=== PATIENT | female | born 1985 | race Two or more races ===

== ENCOUNTER 2023-12-21 08:51 | Emergency (ER) | payer OTHER, SELFPAY ==
[2023-12-21 09:08] VITALS: BP 150/103; PULSE 101; RESP 18; TEMP 36.1; O2SAT 99; BMI 28.5
[2023-12-21 09:32] LABS: Hematocrit 36.6 % (37.0-47.0); Hemoglobin 12.6 g/dl (12.0-16.0); Mean Corpuscular HGB Conc 34.4 g/dl (31.0-35.0); Mean Corpuscular Hemoglobin 28.9 pg (27.0-33.0); Mean Corpuscular Volume 83.9 fL (80.0-98.0); Mean Platelet Volume 10.2 fL (9.4-12.3); Platelet Count 385 X10*3/uL (160-400); Red Blood Count 4.36 X10*6/uL (4.20-5.50); Red Cell Distribution Width 13.9 % (11.0-16.0); White Blood Count 8.7 X10*3/uL (4.8-10.8)
[2023-12-21 09:52] LABS: Alanine Aminotransferase 21 U/L (0-31); Albumin Level 4.4 g/dL (3.5-5.0); Alkaline Phosphatase 102 U/L (39-117); Anion Gap 11 (12-20); Aspartate Amino Transferase 20 U/L (5-31); Bilirubin Total 0.1 mg/dL (0.0-1.0); Blood Urea Nitrogen 9 mg/dL (9-16); Calcium 9.2 mg/dL (8.4-10.2); Carbon Dioxide 24 mmol/L (22-29); Chloride 109 mmol/L (96-108); Creatinine Clr Calc Pharmacy 96.1; Estimated Glomerular Filt Rate > 60; Glucose Random 114 mg/dL (60-115); Potassium 4.3 mmol/L (3.3-5.1); Sodium 140 mmol/L (135-145); Total Protein 7.6 g/dL (6.5-8.0)
== END 2023-12-21 12:54 | disposition left against medical advice (07) ==
PROVIDERS: Emergency Provider Emergency Medicine
DX: R51.9 Headache, unspecified (principal); Z53.21 Procedure and treatment not carried out due to patient leaving prior to being seen by health care provider
CPT/HCPCS: 36415; 80053; 85027; 99281; 99283

== ENCOUNTER 2025-06-11 19:35 | Emergency (ER) | payer OTHER, SELFPAY ==
--- OUTSIDE RECORDS SUMMARY | 2025-06-09 09:26 | XMS_ITS | Continuity of Care Document ---
Author Organization [facility] Address [address] [place] [address]- Care Team Providers Care Electromechanical Equipment Assembler Name Role Phone Miguelangel CHRISTIANSON, [place] Primary Care Physician [phone] Encounter [facility] Date(s): 04/13/25 - 06/09/[address] Encounter Diagnosis Cervicalgia(Final) - Discharge Disposition: A-D/C Home Attending Physician: Ny Means MD Admitting Physician: Ny Means MD Referring Physician: Wero [facility]ST[facility]SON [facility] En[facility] Type: Disch Recurring OP Allergies, Adverse Reactions, Alerts No Known Allergies Immunizations Given and Recorded Vaccine Date Status Refusal Reason SARS-CoV-2 (COVID-19) mRNA-1273 vaccine 02/06/22 R ecorded SARS-CoV-2 (COVID-19) mRNA-1273 vaccine 08/30/21 R ecorded SARS-CoV-2 (COVID-19) mRNA-1273 vaccine 08/02/21 R ecorded influenza virus vaccine, inactivated 05/30/18 Sony rded tetanus/diphtheria/pertussis, acel(Tdap) 04/22/17 Given Human Papillomavirus Vaccine 09/19/09 Given tetanus-diphtheria toxoids (Td) 02/22/06 Given Medications Albuterol (Eqv-ProAir HFA) 90 mcg/inh inhalation aerosol 1 inhalation = 90 mcg, Inhalation, Every 4 hours, PRN as needed for shortness of breath or wheezing, # 6.7 Gm, 0 Refills, Maintenance, 11/25/24 3:45:00 PM EDT, Aerosol, [facility] #[id number], Partial fill upon patient request if the prescription is for a schedule II opioid drug., 1 inhalation Inhalation Every 4 hours,PRN:as needed for shortness of breath or wheezing, 163, cm, 11/25/24 15:08:00 EDT, Height, 77.5, kg, 11/11/24 4:52:00 EDT, Dry Weight Start Date: 11/25/24 Status: Ordered Medication Dispense Status: Completed Quantity: 6.7 Unit: g Total Allowed Fills: 1 Fills Dispensed: 0 Colace sodium 100 mg oral capsule 100 mg, 1, capsule, By Mouth, 2 times a day, PRN, with plenty of water, # 60 capsule, Refills 1, Tot. Refills 1, Maintenance, constipation, 12/22/24 9:37:00 AM EDT, [id number], 163, cm, 12/22/24 8:36:00 EDT, Height, 77.5, kg, 11/11/24 4:52:00 EDT, Dry Weight Start Date: 12/22/24 Stop Date: 02/20/25 Status: Ordered Medication Dispense Status: Completed Quantity: 60.0 Unit: capsule Total Allowed Fills: 2 Fills Dispensed: 0 gabapentin 100 mg oral capsule 3, capsule, By Mouth, 3 times a day, AVOID ALCOHOL., # 270 capsule, Refills 0, Maintenance, 01/19/25 5:52:00 PM EDT, Route to Pharmacy Electronically, [id number], 163, cm, 12/22/24 8:36:00 EDT, Height, 77.5, kg, 11/11/24 4:52:00 EDT, Dry Weight Start Date: 01/19/25 Status: Ordered Medication Dispense Status: Completed Quantity: 270.0 Unit: capsule Total Allowed Fills: 1 Fills Dispensed: 0 hydrochlorothiazide 25 mg oral tablet 25 mg, 1, tablet, By Mouth, Daily, # 90 tablet, Refills 3, Tot. Refills 3, Maintenance, 08/10/24 4:05:00 PM EST, Route to Pharmacy Electronically, [facility], Partial fill upon patientrequest if the prescription is for a schedule II opioid drug., 163, cm, 06/26/24 15:55:00 EST, Height, 78.8, kg, 09/05/23 0:09:00 EST, Dry Weight Start Date: 08/10/24 Status: Ordered Medication Dispense Status: Completed Quantity: 90.0 Unit: tablet Total Allowed Fills: 4 Fills Dispensed: 0 ibuprofen 600 mg oral tablet via J Andraedes, Refills 0, Maintenance, 12/22/24 9:16:00 AM EDT, Partial fill upon patient request if the prescription is for a schedule II opioid drug. Start Date: 12/22/24 Status: Ordered Medication Dispense Status: Completed Total Allowed Fills: 1 Fills Dispensed: 0 lidocaine 5% topical film 1 patch, Topically, Daily, PRN NEEDED FOR PAIN, REMOVE PATCHES AFTER 12 HOURS, # 30 patch, 0 Refills, Maintenance, 01/19/25 5:52:00 PM EDT, [id number], 30, APPLY 1 PATCH TOPICALLY DAILY NEEDED FOR PAIN . REMOVE PATCHES AFTER 12 HOURS, 163, cm, 12/22/24 8:36:00 EDT, Height, 77.5, kg, 11/11/24 4:52:00 EDT, Dry Weight Start Date: 01/19/25 Status: Ordered Medication Dispense Status: Completed Quantity: 30.0 Unit: patch Total Allowed Fills: 1 Fills Dispensed: 0 losartan 25 mg oral tablet 1 tablet, By Mouth, Daily, # 90 tablet, 0 Refills, Maintenance, 03/19/25 12:34:00 PM EDT, [id number], 163, cm, 02/08/25 13:54:00 EDT, Height, 77.5, kg, 11/11/24 4:52:00 EDT, Dry Weight Start Date: 03/19/25 Status: Ordered Medication Dispense Status: Completed Quantity: 90.0 Unit: tablet Total Allowed Fills: 1 Fills Dispensed: 0 Ventolin HFA 108 mcg/inh inhalation aerosol with adapter via J Andraedes, 0 Refills, Maintenance, 12/22/24 9:16:00 AM EDT, Partial fill upon patient request if the prescription is for a schedule II opioid drug. Start Date: 12/22/24 Status: Ordered Medication Dispense Status: Completed Total Allowed Fills: 1 Fills Dispensed: 0 Problem List Condition Confirmation Course Effective Dates Status Health St atus Informant Hypertension Confirmed Active Hypokalemia, most readings 2003 - 2024 Confirmed 2003 Active Social History Social History Type Response Smoking Status Never (less than 100 in lifetime);Former smoker, quit more than 30 days ago; Other: quit in 2023; entered on: 04/07/25 Sex Sex Representation Female (finding) Patient Care team information Care Team Personnel Name: Ny Means MD Position: [facility] Physician - Primary Care Member Role: PCP Address: [address] [place] [address] Telecom: Name: Grecia Keller RN Position: [facility] RN Member Role: Primary Care Nurse Name: Lori Rincon RN Position: [facility] RN Member Role: Primary Care Nurse Care Team Related Persons Name: BEAU PASTOR Name: JEREMIAH PABLO Name: LEENA STARK Name: MICHELE STARK Insurance Providers Guarantor name: FAIZAN PABLO Health Plan Information #: 1 Payer: [employer] [place] Payer Identifier: Member Number: [id number] Group Number: [id number] Subscriber Identifier: [id number] Relationship to Subscriber: self Coverage Type: Medicaid (Managed Care) Coverage Verification Date: NA Telecom: NA Address: Health Plan Information #: 2 Payer: [employer] Payer Identifier: Member Number: [id number] Group Number: Subscriber Identifier: [id number] Relationship to Subscriber: self Coverage Type: MEDICAID Coverage Verification Date: NA Telecom: NA Address:
--- NOTE | ~2025-06-11 | XR_ITS ---
CLINICAL HISTORY: pain s p fall 3 view right ankle Comparison: None provided Findings: There is a fracture of the lateral malleolus. Minimal displacement. No dislocation. Symmetric ankle mortise. Anterior and lateral soft tissue edema. No significant loss of joint space, osteophytes, or erosions. No ankle effusion. No radiopaque foreign body. IMPRESSION: Acute fracture of the lateral malleolus. This document has been electronically signed by: Jinny Scott MD on 06/11/2025 20:41:23
--- NOTE | ~2025-06-11 | XR_ITS ---
CLINICAL HISTORY: pain s p fall 3 view right foot Comparison: None provided Findings: There is an acute fracture of the lateral malleolus. Minimal displacement at the fracture site. No fracture at the level of the foot. No significant loss of joint space, osteophytes, or erosions. No ankle effusion. No radiopaque foreign body. IMPRESSION: Acute fracture of the lateral malleolus. This document has been electronically signed by: Jinny Scott MD on 06/11/2025 20:41:43
[2025-06-11 19:38] VITALS: BP 152/69; PULSE 89; RESP 18; TEMP 37; O2SAT 96; BMI 26.3
--- OUTSIDE RECORDS SUMMARY | 2025-06-11 20:04 | XMS_ITS | Clinical Summary ---
Author Organization [facility] Address [address] [place] [phone] Phone Care Team Providers Care Surface Supervisor Name Role Phone Pcp, Unknown Primary Care Provider Unavailabl e Social History Tobacco Use Types Packs/Day Years Used Date Smoking Tobacco: Never Assessed Comments Unknown Sex and Gender Information Value Date Recorded Sex Assigned at Not on file Legal Sex Female 12:22 PM EST Gender Identity Not on file Sexual Orientation Not on file Plan of Treatment Health Maintenance Due Date Last Done Comments DEPRESSION SCREENING 1996 HEPATITIS C SCREENING 2002 HIV ONE-TIME SCREENING (18-6 5 YEARS) 2002 PAP SMEAR 2005 MAMMOGRAM 2024 INFLUENZA VACCINE (#1) 2025 05/30/2018 COVID-19 VACCINE (2024-2 6 season) 2025 02/06/2022, 08/30/2021, 08/02/2021 Adult Td,Tdap Booster 04/22/2027 04/22/2017 , 02/22/2006 HEPATITIS A VACCINES Aged Out No long er eligible based on patient's age to complete this topic HIB VACCINES Aged Out No longer eligi ble based on patient's age to complete this topic MENINGOCOCCAL VACCINES (ACWY) Aged Out No longer eligible based on patient's age to complete this topic MENINGOCOCCAL VACCINES (B) Aged Out N o longer eligible based on patient's age to complete this topic PNEUMOCOCCAL VACCINES (0-49 years) Aged Out No longer eligible b ased on patient's age to complete this topic Medical Devices Not on file Insurance [facility] [place] [address] [facility] , [address] [place] [id number] [place] [address] , [address] [place] [id number] [facility] Care Teams Surface Supervisor Relationship Specialty Start Date End Date Pcp, Unknown PCP - General 06/15/22 Additional Source Comments The information contained in this document represents components of the legal health record. It is not the complete legal health record.[facility]
--- NOTE | 2025-06-11 20:08 | ED_ITS ---
HPI - Extremity Injury (Lower) General Chief Complaint: Extremity Injury, Lower Stated Complaint: Injury Time Seen by Provider: 06/11/25 20:05 Source: patient Mode of arrival: ambulatory Limitations: no limitations History of Present Illness ED Provider: Parminder WATSON HPI Narrative: The patient is a 40-year-old female who was running on her driveway earlier this morning when she inverted her right ankle. She did not fall or strike her head. She reports immediate pain and swelling localized to the lateral and dorsal aspects of the right ankle. She is able to bear weight with a limp but states it is painful to do so. She was wearing sandals at the time of injury. She has not taken any medications for pain prior to arrival. She denies any previous injury or surgery to the affected ankle. No other injuries reported. Related Data Previous Rx's ?Medication ?Instructions ?Recorded acetaminophen 500 mg capsule 1,000 mg (2 x 500 mg) PO .q8 PRN 06/11/25 fever or pain #30 caps ibuprofen 600 mg tablet 600 mg PO Q8H PRN fever or p ain 06/11/25 #30 tabs Allergies Allergy/AdvReac Type Severity Reaction Status Date / Time No Known Allergies Allergy Verified 06/11/25 19:40 Review of Systems Review of Systems: Yes all other systems are reviewed and are negative Physical Exam Vital Signs: Vital Signs: Last Vital Signs Temp 98.0 F 06/11/25 21:12 Pulse 74 06/11/25 21:12 Resp 16 06/11/25 21:12 BP 127/79 06/11/25 21:12 Pulse Ox 98 06/11/25 21:12 O2 Del Method Room Air 06/11/25 21:12 BMI result Body Mass Index 26.3 CONSTITUTIONAL: The patient appears non-toxic, well nourished and in no acute distress. Vital signs as documented. HEAD: Atraumatic, normocephalic. EYES: EOMs grossly intact, pupils equal, conjunctiva clear, no exudate. ENT: Nares patent, no discharge. Airway patent, no audible stridor, visible mucosa is pink and moist without noted lesions. NECK: trachea is midline, no obvious masses or gross abnormalities. CHEST: Symmetric movement, normal appearance. LUNGS: Non-labored work of breathing. CARDIAC: No evidence of hypoperfusion. ABDOMEN: Nondistended, no obvious injury. : Deferred. EXTREMITIES: There is moderate swelling and tenderness to palpation of the right lateral malleolus and anterior ankle, no tenderness of the proximal fibula, no crepitus, mild abrasions noted to the lateral aspect of the 5th distal metatarsal, no other open injury, 2+ DP/PT pulses, distal CSM intact, painful but full range of motion noted. Moves all other extremities spontaneously without reported pain. No other obvious injury or deformity noted. NEURO: Alert and oriented x3, CN II-XII appear grossly intact. Cerebellar Functioning grossly intact. Speech clear and appropriate. SKIN: Warm, dry, color appropriate. No rashes or lesions noted. Medications Administered Discontinued Medications Generic Name Dose Route Start Last Admin Trade Name Freq PRN Reason Stop Dose Admin Acetaminophen 975 mg 06/11/25 20:17 06/11/25 20:21 Acetaminophen 325 Mg Tablet PO 06/11/25 20:18 975 mg ONCE ONE Administration Ibuprofen 600 mg 06/11/25 20:17 06/11/25 20:21 Ibuprofen 600 Mg Tablet PO 06/11/25 20:18 600 mg ONCE ONE Administration Medical Decision Making Medical Decision Making MDM Narrative: 8:09 PM 06/11/2025 (Martine WATSON): The patient is a 40-year-old female who was running on her driveway earlier this morning when she inverted her right ankle. She did not fall or strike her head. She reports immediate pain and swelling localized to the lateral and dorsal aspects of the right ankle. She is able to bear weight with a limp but states it is painful to do so. She was wearing sandals at the time of injury. She has not taken any medications for pain prior to arrival. She denies any previous injury or surgery to the affected ankle. No other injuries reported. 8:23 PM 06/11/2025 (Martine WATSON): The patient's ankle x-ray has been obtained and by this provider's interpretation shows a comminuted fracture of the distal fibula, no evidence of bimalleolar or trimalleolar fracture, ankle mortise shows no significant widening. No fractures of the foot identified. Pending similar interpretation by radiology the patient will be placed in a tall walking boot and provided crutches with non-weightbearing instructions and orthopedic follow up for definitive management. Admission/Observation Consideration of admission/observation: Escalation of care including admission/observation considered Independent Interpretation I performed an independent interpretation of an: Plain X-Ray Interpretation: Comminuted fracture of the distal fibula, no evidence of bimalleolar or trimalleolar fracture, ankle mortise appears intact. No foot fractures identified. Radiology Impression Discussion of test interpretation with radiology: I have reviewed the radiologist's reading. External Record Review External record reviewed: Outpatient record Prescription Management I considered prescription management with: Pain Medication Discharge Plan Discharge Clinical Impression: Closed right fibular fracture Qualifiers: Encounter type: initial encounter Fibula location: distal Patient Disposition: Home, Self-Care Instructions: Ankle Fracture (ED), P.R.I.C.E. Treatment (ED) Additional Instructions: Marjan por elegir el Departamento de Urgencias del [facility] M?dico [place] para san atenci?n m?dica hoy. En kadie momento, no hay indicaci?n de ingreso hospitalario ni de observaci?n continua en urgencias, y es seguro darle de alanis. Lamentablemente, san radiograf?a de hoy muestra janine fractura del peron? distal del tobillo derecho. Afortunadamente, no hay desalineaci?n del tobillo y pudimos colocarle janine bota ortop?dica y proporcionarle muletas. Por favor, use las muletas para no cargar peso hasta san gladys de seguimiento en la cl?ben ortop?dica. Por favor, llame a la cl?ben ortop?dica al n?blanche proporcionado para programar janine gladys de seguimiento y tratamiento adicional de esta fractura. Debe romel dosis alternas (escalonadas) de ibuprofeno 600 mg y Tylenol 1000 mg cada 4 horas seg?n sea necesario para cualquier dolor adicional. Por favor, deje reposar la dominga lesionada y aplique hielo ronal 20 minutos cada hora. Por favor, consulte tambi?n con san m?dico de cabecera para janine reevaluaci?n, un tratamiento adicional de joy s?ntomas y atenci?n preventiva continua. Si no tiene un m?dico de cabecera, llame a [facility] al [phone] para asignarle albert nuevo. Mientras espera la asignaci?n de san nuevo m?dico de cabecera, puede llamar a nuestra Cl?ben de Atenci?n Sin Gladys Previa al [phone] para necesidades que no yair de emergencia. Por favor, regrese al servicio de urgencias si presenta un cambio grave o repentino en joy s?ntomas, fiebre superior a 38 ?C que no mejora con Tylenol o ibuprofeno, v?mitos recurrentes o cualquier otro s?ntoma o inquietud nuevo o que empeore. Thank you for choosing [facility] Emergency Department for your care today. At this time there is no indication for admission to the hospital or continued ED observation, and it is safe to discharge you home. Unfortunately your x-ray today demonstrates that you suffered a fracture of the distal fibula of your right ankle. Thankfully there is no misalignment of the ankle and we were able to put you in a walking boot and provided crutches. Please use the crutches to remain nonweightbearing until follow up with the orthopedic clinic. Please call the orthopedic clinic by calling the number provided to schedule an appointment for follow up and further management of this fracture. You should take alternating (staggered) doses of ibuprofen 600mg and Tylenol 1000mg every 4 hours as needed for any additional pain. Please rest the injured area, and apply ice for 20 minutes every hour. Please also follow up with your primary care physician for re-evaluation, additional management of your symptoms, and continued preventative care. If you do not have a primary care physician, please call the [facility] at [phone] to establish a new primary care physician. While waiting to establish your new primary care physician, you can call our Walk-in Care Clinic at [phone] for non-emergency needs. Please return to the emergency department if you develop a severe or sudden change in your symptoms, a fever over 100.4 that does not improve with Tylenol or Ibuprofen, recurrent vomiting, or any other new or worsening symptoms or concerns. Prescriptions: New acetaminophen 500 mg capsule 1,000 mg PO .q8 PRN (Reason: fever or pain) Qty: 30 0RF ibuprofen 600 mg tablet 600 mg PO Q8H PRN (Reason: fever or pain) Qty: 30 0RF Referrals: [facility] Orthopedic Surgeons [Provider Group] Clinical Impression: Closed right fibular fracture Interventions: ED Discharge Assessment Last Done: 06/11/25 21:12 Discharge Date/Time: 06/11/25 21:16 Print Language: Croatian
[2025-06-11 20:10] VITALS: BP 121/81; PULSE 88; RESP 16; O2SAT 95
[2025-06-11 21:12] VITALS: BP 127/79; PULSE 74; RESP 16; TEMP 36.7; O2SAT 98
== END 2025-06-11 21:16 | disposition home or self-care (01) ==
PROVIDERS: Emergency Provider Emergency Medicine
DX: S82.891A Other fracture of right lower leg, initial encounter for closed fracture (principal); S90.414A Abrasion, right lesser toe(s), initial encounter; M25.471 Effusion, right ankle; M25.571 Pain in right ankle and joints of right foot; X50.9XXA Other and unspecified overexertion or strenuous movements or postures, initial encounter; Y93.01 Activity, walking, marching and hiking; Y92.9 Unspecified place or not applicable; Y99.8 Other external cause status
CPT/HCPCS: 73610; 73630; 99283; 99284

== ENCOUNTER → 2025-06-11 20:00 | Outpatient (BNV) | payer OTHER, SELFPAY | PROVIDERS: Emergency Provider Emergency Medicine; Visit Provider Radiology Diagnostic Radiology | DX: S82.61XA Displaced fracture of lateral malleolus of right fibula, initial encounter for closed fracture (principal) | CPT/HCPCS: 73610; 73630 ==

== ENCOUNTER 2025-06-14 13:56 | Outpatient (AMB) | payer OTHER, SELFPAY ==
--- NOTE | 2025-06-14 14:05 | MHC.OFFVIS ---
Vital Signs 06/14/25 14:11 Height 5 ft 4 in Weight 153 lb BMI 26.3 Intake Visit Reasons: FC-Right ankle fx Intake Note: Karmen is a 40 year old female who presents today for an ER follow up of right ankle fracture, DOI 06/11/25. Patient reported to [facility] ER status post inversion of right ankle. Per ER note, patient was running on her driveway when she inverted her right ankle, denies fall. X-rays were performed and she was placed in a walking boot. Today patient reports pain that is located at the medial and lateral aspect of ankle. States her pain travels up her leg. Denies numbness however complaints of a tingling sensation. Finds no relief with Tylenol and Motrin. Allergies No Known Allergies Allergy (Verified 06/17/25 15:15) Medication List - Last Reconciled 06/17/25 by Shante Altamirano PA-C acetaminophen 1,000 mg (2 x 500 mg) PO .q8 PRN hydrochlorothiazide 25 mg PO DAILY ibuprofen 600 mg PO Q8H PRN ibuprofen 800 mg PO Q8H PRN 30 days [Kneeling Scooter As directed] tramadol 50 mg PO BEDTIME 7 days HPI HPI FC-Right ankle fx: Details: 40 yo female presents to the office today for an injury she sustained to her right ankle on 06/11/25 while running in the driveway. She states she was wearing sandals when she twisted the ankle and fell. She was seen in the ED, xrays obtained and she was placed in a walking boot. She states she has not been able to weight bear. She comes in today for further evaluation . [facility] Social History e-Cigarette/Vaping Use: Currently Using Current occupational status: unemployed Review of Systems Const All systems reviewed & are unremarkable except as noted in HPI and below Physical Exam Vital Signs: BMI result Body Mass Index 26.3 Const General: cooperative and no acute distress Orientation/consciousness: patient oriented x3 Resp Effort & Inspection: normal respiratory effort and able to speak in complete sentences Cardio Peripheral pulses: Peripheral pulses 2+ throughout Neuro General: patient oriented x3 Extrem Other: Right ankle skin intact. She has some swelling and tenderness over the lateral malleolus. NVI. Office Procedures AMB Fracture Care Fracture Billing Code: Fracture Billing Code Casting/Splints 79259-[id number] Leg Cast Application Procedure code (CPT) selection complete Results Reviewed Results Reviewed: xrays right ankle 06/11/25 IMPRESSION: Acute fracture of the lateral malleolus. Assessment & Plan Assessment & Plan (1) Closed right ankle fracture: Code(s): S82.891A - Other fracture of right lower leg, initial encounter for closed fracture Category: Medical Plan: I explained to the patient the extent of the injury and options available.? We can treat this conservatively but will have to watch her very closely to make sure there is no displacement or collapse of the mortise.? She was placed in a cast, non weightbearing.? We will re-examin her in one week to check stability of the fracture. If there is some displacement that occurs we may need to discuss surgical intervention which could require plate and screws.? I also educated her on the risk factors of smoking and the effect that it can have on bone healing.?She does understand all this and will see me back in a week with xrays through the cast. Sooner if needed. Medications: New [Kneeling Scooter] As directed 1 ea 0RF S82.401A - Unspecified fracture of shaft of right fibula, initial encounter for closed fracture [Kneeling Scooter] As directed 1 ea 0RF S82.401A - Unspecified fracture of shaft of right fibula, initial encounter for closed fracture tramadol 50 mg PO BEDTIME 7 tabs 0RF 7 days ibuprofen 800 mg PO Q8H PRN 90 tabs 3RF pain 30 days S52.209D - Unspecified fracture of shaft of unspecified ulna, subsequent encounter for closed fracture with routine healing Coding Level of Care Code New Pt Level 3 (72937) Complex visit Add On G2211 Diagnoses Closed right ankle fracture S82.891A CPT Codes Fracture Care - Fracture Billing Code: Fracture Billing Code ([id number]) Casting - CPT: 26084-Eifjg Leg Cast Application ([id number])
[2025-06-14 14:11] VITALS: BMI 26.3
--- OUTSIDE RECORDS SUMMARY | 2025-06-14 17:24 | XMS_ITS | Clinical Summary ---
Author Organization [facility] Address [address] [place] [phone] Phone Care Team Providers Care Consulting Engineer Name Role Phone Pcp, Unknown Primary Care [...] topic Medical Devices Not on file Insurance [facility] [address] [address] [place] [address] [facility] , [address] [place] [id number] [place] [address] , [address] [place] [phone] [facility] Care Teams Consulting Engineer Relationship Specialty Start Date End Date Pcp, Unknown PCP - General 06/15/22 Additional Source Comments The information contained in this document represents components of the legal health record. It is not the complete legal health record.[facility]
== END 2025-06-14 15:08 | disposition home or self-care (01) ==
LOC: HO.HOS 13:57
PROVIDERS: Visit Provider Physician Assistant
DX: S82.891A Other fracture of right lower leg, initial encounter for closed fracture (principal)
CPT/HCPCS: 27786; 99203

== ENCOUNTER → 2025-06-14 13:56 | Outpatient (BNVA) | payer OTHER, SELFPAY | PROVIDERS: Visit Provider Physician Assistant | DX: S82.891A Other fracture of right lower leg, initial encounter for closed fracture (principal) | CPT/HCPCS: 27786; 99202 ==

== ENCOUNTER 2025-06-17 14:40 | Outpatient (AMB) | payer OTHER, SELFPAY ==
--- NOTE | 2025-06-17 14:49 | MHC.OFFVIS ---
Vital Signs 06/17/25 15:15 Height 5 ft 4 in Weight 153 lb BMI 26.3 Intake Visit Reasons: OV-cast change/ Rt ankle fx Intake Note: Karmen is a 40 year old female who presents today with complaints of of calf pain that travels down her foot status post right ankle fracture, DOI 06/11/25. Allergies No Known Allergies Allergy (Verified 06/17/25 15:15) Medication List - Last Reconciled 06/17/25 by Shante Altamirano PA-C acetaminophen 1,000 mg (2 x 500 mg) PO .q8 PRN hydrochlorothiazide 25 mg PO DAILY ibuprofen 600 mg PO Q8H PRN ibuprofen 800 mg PO Q8H PRN 30 days [Kneeling Scooter As directed] tramadol 50 mg PO BEDTIME 7 days HPI HPI OV-cast change/ Rt ankle fx: Details: 40-year-old female presents today for a cast change. She feels the cast is too tight around the calf. [facility] Social History e-Cigarette/Vaping Use: Currently Using Current occupational status: unemployed Physical Exam Vital Signs: BMI result Body Mass Index 26.3 Office Procedures Casting/Splints [id number]-[id number] Leg Cast Application Procedure code (CPT) selection complete Assessment & Plan Assessment & Plan (1) Closed right fibular fracture: Code(s): S82.401A - Unspecified fracture of shaft of right fibula, initial encounter for closed fracture Category: Medical Qualifiers: Encounter type: initial encounter Fibula location: distal Plan: Patient was placed in a short-leg cast right lower extremity and will remain nonweightbearing. Coding Level of Care Code Global (46398) Diagnoses Closed right fibular fracture S82.401A Encounter type: initial encounter Fibula location: distal CPT Codes Casting - CPT: 83498-Wzolb Leg Cast Application ([id number])
[2025-06-17 15:15] VITALS: BMI 26.3
--- OUTSIDE RECORDS SUMMARY | 2025-06-17 20:49 | XMS_ITS | Clinical Summary ---
Author Organization [facility] Address [address] [place] [id number] Phone Care Team Providers Care Nutrition Instructor Name Role Phone Pcp, Unknown Primary Care [...] topic Medical Devices Not on file Insurance [facility] [place] [address] [facility] , [address] [place] [id number] [place] [address] [address] [place] [id number] [facility] Care Teams Nutrition Instructor Relationship Specialty Start Date End Date Pcp, Unknown PCP - General 06/15/22 Additional Source Comments The information contained in this document represents components of the legal health record. It is not the complete legal health record.[facility]
== END 2025-06-17 16:50 | disposition home or self-care (01) ==
LOC: HO.HOS 14:41
PROVIDERS: Visit Provider Physician Assistant
DX: S82.401A Unspecified fracture of shaft of right fibula, initial encounter for closed fracture (principal)
CPT/HCPCS: 29405; 99024

== ENCOUNTER → 2025-06-17 14:40 | Outpatient (BNVA) | payer OTHER, SELFPAY | PROVIDERS: Visit Provider Physician Assistant | DX: S82.401D Unspecified fracture of shaft of right fibula, subsequent encounter for closed fracture with routine healing (principal) | CPT/HCPCS: 29405; 99212 ==

== ENCOUNTER 2025-06-21 08:23 | Outpatient (REF) | payer OTHER, SELFPAY ==
--- NOTE | ~2025-06-21 | XR_ITS ---
EXAMINATION: XR ANKLE 3 OR MORE VIEWS RIGHT HISTORY: M25.571 - Pain in right ankle and joints of right foot COMPARISON: Comparison is made with the prior examination dated 06/11/2025. FINDINGS: Three casted views of the right ankle are submitted. The fiberglass cast obscures fine bony detail. Again seen is a minimally displaced fracture of the distal fibula. Alignment is unchanged. The joint spaces are preserved. The soft tissues are unremarkable. XR/XR ankle RT min 3V IMPRESSION: Minimally displaced fracture of the distal fibula without significant change. Electronically signed by: Lul Tsai MD 06/21/2025 09:21 AM [facility]
== END 2025-06-21 08:24 | disposition home or self-care (01) ==
LOC: HO.HOSX 08:23
PROVIDERS: Visit Provider Physician Assistant
DX: S82.891A Other fracture of right lower leg, initial encounter for closed fracture (principal)
CPT/HCPCS: 73610

== ENCOUNTER 2025-06-21 09:06 | Outpatient (AMB) | payer OTHER, SELFPAY ==
[2025-06-21 09:15] VITALS: BMI 26.3
--- NOTE | 2025-06-21 09:15 | MHC.OFFVIS ---
Vital Signs 06/21/25 09:15 Height 5 ft 4 in Weight 153 lb BMI 26.3 Intake Visit Reasons: OV- Rt ankle fx xrays in cast Intake Note: Karmen is a 40 year old female who presents today for an ER follow up of right ankle fracture, DOI 06/11/25. At her last visit she was placed in a short leg cast, instructed to follow up in a week. Today patient reports her pain is a 5/10, she is taking Tramadoil to help with pain and stated cast feels slightly tight possible due to increase swelling. Allergies No Known Allergies Allergy (Verified 06/21/25 09:23) Medication List - Last Reconciled 06/21/25 by Shante Altamirano PA-C acetaminophen 1,000 mg (2 x 500 mg) PO .q8 PRN hydrochlorothiazide 25 mg PO DAILY ibuprofen 600 mg PO Q8H PRN ibuprofen 800 mg PO Q8H PRN 30 days [Kneeling Scooter As directed] tramadol 50 mg PO Q12H 7 days HPI HPI OV- Rt ankle fx xrays in cast: Details: 40-year-old female returns to the office today for a follow-up right ankle fracture date of injury 06/11/2025. Patient is complaining of discomfort in the ankle and feels the cast is too tight. Otherwise no concerns. [facility] Social History e-Cigarette/Vaping Use: Currently Using Current occupational status: unemployed Review of Systems Const All systems reviewed & are unremarkable except as noted in HPI and below Physical Exam Vital Signs: BMI result Body Mass Index 26.3 Const General: cooperative and no acute distress Orientation/consciousness: patient oriented x3 Resp Effort & Inspection: normal respiratory effort and able to speak in complete sentences Cardio Peripheral pulses: Peripheral pulses 2+ throughout Neuro General: patient oriented x3 Extrem Other: Right ankle skin intact. She has some swelling and tenderness over the lateral malleolus. Calf supple non tender. NVI. Office Procedures Casting/Splints [id number] Leg Cast Application Procedure code (CPT) selection complete Results Reviewed Results Reviewed: X-rays of the right ankle obtained in the office today through the cast show stable fracture pattern through the lateral malleolus with intact ankle mortise Assessment & Plan Assessment & Plan (1) Closed right ankle fracture: Code(s): S82.891A - Other fracture of right lower leg, initial encounter for closed fracture Category: Medical Plan: Patient was placed in a new short-leg cast today due to discomfort in the current cast. The ankle joint appears to be stable therefore she will remain in a short-leg cast for a total of 6 weeks from date of injury. I will see her back in 5 weeks for cast off and x-rays, sooner if needed. Orders: Orders XR ankle RT min 3V Today M25.571 - Pain in right ankle and joints of right foot Medications: Changed From tramadol 50 mg PO BEDTIME 7 days 7 tabs 0RF To tramadol 50 mg PO Q12H 14 tabs 0RF 7 days Coding Level of Care Code Global (94112) Diagnoses Closed right ankle fracture S82.891A CPT Codes Casting - CPT: 15583-Kzwpg Leg Cast Application ([id number])
== END 2025-06-21 10:07 | disposition home or self-care (01) ==
LOC: HO.HOS 09:07
PROVIDERS: Visit Provider Physician Assistant
DX: S82.891A Other fracture of right lower leg, initial encounter for closed fracture (principal)
CPT/HCPCS: 29405; 99024

== ENCOUNTER → 2025-06-21 09:08 | Outpatient (BNV) | payer OTHER, SELFPAY | PROVIDERS: Visit Provider Radiology Diagnostic Radiology | DX: S82.831A Other fracture of upper and lower end of right fibula, initial encounter for closed fracture (principal) | CPT/HCPCS: 73610 ==